=== PATIENT | male | born 1980 | race African-American/Black ===

== ENCOUNTER 2016-11-23 23:07 | Emergency (ER) | payer OTHER ==
[2016-11-23 23:15] VITALS: BP 133/93
[2016-11-23] MEDS ORDERED: Al Hydrox/Mg Hydrox/Simet LIQ* 30 ML UDC PO ONE (23:25)
[2016-11-23] MEDS ORDERED: Lidocaine 2% VISCOUS* 15 ML UDC PO ONE (23:25)
--- NOTE | 2016-11-24 01:41 | ED ---
Aurelio Ortiz Billy, scribed for Trevor Orozco MD on 11/24/16 at 0009 . GI/ HPI - HPI Summary HPI Summary: Patient is a 36 year-old inmate coming to [facility] after swallowing 2 plastic forks earlier tonight at 2030. At this time in the ED, he reports epigastric pain. Pain severity 6/10. Nothing makes his symptoms better or worst. He states that this was due to "behavioral outburst" and not self-harm. This was due to a stressful argument with a fellow inmate. He was seen at [facility] in June 2016 for a similar episode. - History of Current Complaint Chief Complaint: EDForeignBodyEsophag Time Seen by Provider: 11/23/16 23:18 Stated Complaint: SWALLOWED FOREIGN OBJECT Hx Obtained From: Patient Onset/Duration: Started Hours Ago, Still Present Timing: Constant Severity: Moderate Current Severity: Moderate Pain Intensity: 6 Location of Pain: Epigastric Associated Signs and Symptoms: Positive: Negative Foreign Body: Gastric Aggravating Factor(s): Nothing Alleviating Factor(s): Nothing - Allergy/Home Medications Allergies/Adverse Reactions: Allergies Allergy/AdvReac Type Severity Reaction Status Date / Time Haloperidol [From Haldol] Allergy Unknown Verified 06/21/16 17:08 Reaction Details PMH/Surg Hx/FS Hx/Imm Hx Endocrine/Hematology History: Denies: Hx Diabetes Psychiatric History: Reports: Hx Schizophrenia, Hx Bipolar Disorder Infectious Disease History: No Infectious Disease History: Denies: Traveled Outside the [place] in Last 30 Days - Family History Known Family History: Positive: Hypertension - Social History Alcohol Use: None Hx Substance Use: No Substance Use Type: Reports: None Smoking Status (MU): Unknown if Ever Smoked Review of Systems Negative: Fever Positive: Abdominal Pain All Other Systems Reviewed And Are Negative: Yes Physical Exam Triage Information Reviewed: Yes Vital Signs On Initial Exam: Initial Vitals Temp Pulse Resp BP Pulse Ox 98.8 F 85 17 133/93 96 11/23/16 23:11 11/23/16 23:11 11/23/16 23:11 11/23/16 23:11 11/23/16 23:11 Vital Signs Reviewed: Yes Appearance: Positive: No Pain Distress, Thin Head/Face: Positive: Normal Head/Face Inspection ENT: Positive: Hearing grossly normal Respiratory/Lung Sounds: Positive: Breath Sounds Present Cardiovascular: Positive: RRR Abdomen Description: Positive: Nontender, Soft Neurological: Positive: Sensory/Motor Intact, Alert, Oriented to Person Place, Time, Normal Gait Psychiatric: Positive: Affect/Mood Appropriate Diagnostics - Vital Signs Vital Signs Temp Pulse Resp BP Pulse Ox 11/23/16 23:11 98.8 F 85 17 133/93 96 - Laboratory Lab Statement: Any lab studies that have been ordered have been reviewed, and results considered in the medical decision making process. - CT abd/pel w/o CT Interpretation Completed By: Radiologist - Positive for a 3.9 cm x 6.8 mm foreign body is seen in the gastric antrum. A similar foreign body is seen in the second to third portion of the duodenum. Please note that oral contrast was administered and this may mask and obscure other ingested foreign bodies. No bowel obstruction, free air, or free fluid. Normal liver. Normal gallbladder. Normal spleen. Normal pancreas. Normal adrenal glands. Re-Evaluation - Re-Evaluation First Eval Comment: results d/w pt, advised to strain stools to make sure passage, follow up as needed GIGU Course/Dx - Diagnoses Provider Diagnoses: Foreign body ingestion - Physician Notifications Discussed Care Of Patient With: Dr. Galarza (radiology) @ 0137: CT abd/pel findings reviewed. Discharge - Discharge Plan Condition: Stable Disposition: LAW ENFORCEMENT/COURT Patient Education Materials: Foreign Body Ingestion (ED) Referrals: Yahir MULLINS,Velma Renee [Primary Care Provider] - Additional Instructions: STRAIN YOUR STOOLS. The documentation as recorded by the Aurelio escalante Billy accurately reflects the service I personally performed and the decisions made by , Trevor Orozco MD.
--- NOTE | 2016-11-24 07:58 | RAD ---
CLINICAL HISTORY: Foreign body ingestion COMPARISON: June 21, 2016 TECHNIQUE: Multiple contiguous axial CT scans were obtained of the abdomen and pelvis, without intravenous contrast enhancement. Coronal and sagittal multiplanar reformations are submitted for review. Oral contrast was administered. FINDINGS: The study is limited by the lack of intravenous contrast. This limits evaluation of the solid organs and vasculature. Additionally, the presence of oral contrast may obscure the presence of small foreign bodies within the lumen of the tract. LUNG BASES: The lung bases are clear. LIVER: The liver is normal in shape, size, contour, and attenuation. BILE DUCTS: There is no intrahepatic or extrahepatic biliary dilatation. GALLBLADDER: The gallbladder is normal, without pericholecystic inflammatory change. PANCREAS: The pancreas is normal, without mass or ductal dilatation. SPLEEN: Normal in size and appearance. UPPER GI TRACT: Evaluation of the gastrointestinal tract is limited by incomplete gastric distention. There is approximately 3.4 cm foreign body noted within the lumen of the stomach towards the gastric antrum. There is a similar linear foreign body within the duodenum at the junction of the second and third stages. SMALL BOWEL AND MESENTERY: The small bowel is normal in contour, course, and caliber. There is no obstruction or dilatation. COLON: The colon is normal in contour, course, caliber. There is no pericolonic inflammatory change. ADRENALS: Normal bilaterally. KIDNEYS: The kidneys are normal in shape, size, contour, and axis. There is no hydronephrosis or nephrolithiasis. BLADDER: The bladder is smooth in contour. PELVIC ORGANS: The prostate gland is normal. The seminal vesicles are symmetric. AORTA: The aorta is normal. IVC: Unremarkable LYMPH NODES: There is no lymphadenopathy by size criteria. ABDOMINAL WALL: There is no evidence for abdominal wall hernia. BONES AND SOFT TISSUES: The bones and soft tissues are unremarkable. OTHER: None IMPRESSION: FOREIGN BODY IS NOTED WITHIN THE STOMACH AND THE DUODENUM, WITHOUT FREE INTRAPERITONEAL GAS OR OBSTRUCTION
== END 2016-11-24 03:37 ==
LOC: ED 23:07
DX: R10.13 Epigastric pain (principal); T18.2XXA Foreign body in stomach, initial encounter; X58.XXXA Exposure to other specified factors, initial encounter; Y93.9 Activity, unspecified; Y92.149 Unspecified place in prison as the place of occurrence of the external cause; Y99.9 Unspecified external cause status
CPT/HCPCS: 74176; 99282; A9270-GY

== ENCOUNTER 2024-07-12 18:02 | Inpatient (IN) ==
[2024-07-12] MEDS ORDERED: Succinylcholine 200 mg VIAL 20 mg/ml 10 ml VIAL (200 mg) ONE (18:09)
[2024-07-12] MEDS ORDERED: Rocuronium 50 mg VIAL 10 mg/ml 5 ml VIAL (50 mg) ONE ×2 (18:09→19:49)
[2024-07-12] MEDS ORDERED: Propofol 10 mg/ml 100 ML BTL 1,000 MG/100 ML BTL ONE (18:34)
[2024-07-12 19:00] LABS: INR 1.09 (0.85-1.14)
[2024-07-12] MEDS: Propofol 10 mg/ml 100 ML BTL 1,000 MG/100 ML BTL IV SCH (19:09)
[2024-07-12 19:13] LABS: ABS Basophils 0.1 10^3/uL (0.0-0.1); ABS Eosinophils 0.2 10^3/uL (0.0-0.5); ABS Lymphocytes 1.5 10^3/uL (1.0-4.8); ABS Monocytes 0.3 10^3/uL (0.0-1.1); ABS Neutrophils 10.7 10^3/uL (1.5-7.6); ABS Nucleated RBC 0.01 10^3/ul; Eosinophil % 1.4 %; Hematocrit 42.7 % (38-53); Hemoglobin 14.5 g/dL (13.2-16.3); Lymphocyte % 11.9 %; Mean Corpuscular Hemoglobin 30.2 pg (27-33); Mean Corpuscular Hgb Conc 33.8 g/dL (31-36); Mean Corpuscular Volume 89.1 fL (80-97); Mean Platelet Volume 9.7 fL (7.5-11.2); Nucleated Red Blood Cells % 0.1 %/100WBC (0.0-0.8); Platelet Count 273 10^3/uL (150-450); Red Blood Count 4.79 10^6/uL (4.06-5.63); Red Cell Distribution Width 14.3 % (12-17); White Blood Count 12.7 10^3/uL (3.6-10.2)
[2024-07-12 19:14] LABS: ALT 20 U/L (7-52); Acetaminophen < 15 mcg/mL; Albumin 4.6 g/dL (3.2-5.2); Albumin/Globulin Ratio 1.3 (1-3); Alcohol, S < 13 mg/dL (<13); Alkaline Phosphatase 103 U/L (35-149); Anion Gap 18 mmol/L (2-16); Blood Urea Nitrogen 13 mg/dL (6-24); CO2 Carbon Dioxide 20 mmol/L (22-32); Chloride 102 mmol/L (101-111); Creatine Kinase 974 U/L (10-223); Globulin 3.6 g/dL (2-4); Glucose 124 mg/dL (70-100); Magnesium 2.1 mg/dL (1.9-2.7); Salicylate < 2.50 mg/dL (<30); Sodium 140 mmol/L (135-145); Total Protein 8.2 g/dL (6.4-8.9); eGFR CKD-EPI 106.7 (>60)
[2024-07-12 19:16] LABS: High Sens Troponin Baseline 20 pg/mL (<20)
[2024-07-12] MEDS ORDERED: fentaNYL 100 mcg/2 ml 50 MCG/ML VIAL ONE (19:16)
[2024-07-12] MEDS: fentaNYL 100 mcg/2 ml 50 MCG/ML VIAL IV SLOW PU ONE (19:19)
[2024-07-12 19:25] LABS: TSH Ultra Thyroid Stim Horm 1.19 mcIU/mL (0.34-5.60)
[2024-07-12] MEDS ORDERED: LORazepam 2 mg VIAL 1 ml ONE (19:25)
[2024-07-12] MEDS: LORazepam 2 mg VIAL 1 ml IV PUSH ONE (19:26)
[2024-07-12] MEDS ORDERED: Ketamine HCL 50 mg/ml 10 ml VIAL (500 MG) ONE (19:47)
[2024-07-12 20:07] LABS: Urine Appearance Clear; Urine Bilirubin Negative (Negative); Urine Blood 3+ (Negative); Urine Color Light-Yellow; Urine Glucose Negative (Negative); Urine Ketones Trace (Negative); Urine Nitrite Negative (Negative); Urine Protein 1+ (>=30 mg/dL) (Negative); Urine Specific Gravity 1.014 (1.002-1.030); Urine Urobilinogen Negative (Negative); Urine pH 5.5 (5.0-8.0)
[2024-07-12 20:10] LABS: Urine Bacteria 1+ /HPF (Absent); Urine Red Blood Cell Trace(0-2/hpf) /HPF (0-Trace); Urine White Blood Cell Trace(0-5/hpf) /HPF (0-Trace)
[2024-07-12 20:13] LABS: Urine Benzodiazepine Screen None Detected (None Detect); Urine Buprenorphine Screen Presumptive Positive (None Detect); Urine Cannabinoids Screen None Detected (None Detect); Urine Fentanyl Screen None Detected (None Detect); Urine Hydrocodone Screen None Detected (None Detect); Urine Opiates Screen None Detected (None Detect)
[2024-07-12] MEDS: Rocuronium 50 mg VIAL 10 mg/ml 5 ml VIAL (50 mg) IV ONE (20:15)
[2024-07-12] MEDS: Ketamine HCL 50 mg/ml 10 ml VIAL (500 MG) IV ONE (20:15)
[2024-07-12 20:41] LABS: Potassium Redraw 3.4 mmol/L (3.5-5.0)
[2024-07-12] MEDS: levETIRAcetam 500 MG IVPREMIX 500 MG/100 ML BAG IVPB ONE (21:23)
[2024-07-12 21:31] LABS: Valproic Acid < 10.0 mcg/mL (50-100)
[2024-07-12] MEDS: LEVETIRACETAM IVPB ONE (21:52)
[2024-07-12] MEDS: NS 0.9% IVPB ONE (21:52)
[2024-07-12] MEDS: Lactated Ringers 1000 ml BAG 1,000 ML IV ONE (21:58)
[2024-07-12] MEDS ORDERED: Lorazepam PYXIS KEY PRN (23:02)
[2024-07-13] LABS: Venous Bicarbonate HCO3 27.8 mmol/L (24-28)
[2024-07-13] MEDS: Propofol 10 mg/ml 100 ML BTL 1,000 MG/100 ML BTL IV SCH ×2 (00:03→06:45)
[2024-07-13] MEDS: Chlorhexidine MOUTHWASH 0.12% 15 ML UDC TOPICAL SCH (00:03)
[2024-07-13 00:16] LABS: High Sensitivity Troponin 3 Hr 125 pg/mL (<20)
[2024-07-13] MEDS: KCL 20 MEQ/100 ML IVPREMIX 20 MEQ/100 ML BAG IV SCH ×2 (00:38→19:02)
[2024-07-13] MEDS: Famotidine IV 10 MG/ML 2 ml VIAL (20 mg) IV SLOW PU SCH (00:41)
[2024-07-13] MEDS: Lactated Ringers 1000 ml BAG 1,000 ML IV ONE (00:41)
[2024-07-13] MEDS ORDERED: hydrALAZINE 20 mg/ml 1 ML Vial IV IV SLOW PU PRN ×2 (00:53→00:57)
[2024-07-13] MEDS ORDERED: Enoxaparin 100 MG/ML SYR SUBCUT SCH (01:00)
[2024-07-13] MEDS: LORazepam 2 mg VIAL 1 ml IV PUSH ONE (01:02)
[2024-07-13] MEDS: Magnesium Sulf 4 GM/100 ML IV 4,000 MG/100 ML BAG IVPB ONE (01:21)
[2024-07-13] MEDS: fentaNYL 100 mcg/2 ml 50 MCG/ML VIAL IV SLOW PU PRN (01:35)
[2024-07-13] MEDS: LORazepam 2 mg VIAL 1 ml ONE (02:14)
[2024-07-13] MEDS: fentaNYL 100 mcg/2 ml 50 MCG/ML VIAL ONE (02:14)
[2024-07-13] MEDS: Enoxaparin 40 MG/0.4 ML SYR SUBCUT SCH ×2 (02:14→17:42)
[2024-07-13] MEDS: niCARdipine 0.1MG/ML IVPREMIX 20 MG/200 ML BAG IV SCH ×2 (02:16→03:55)
[2024-07-13] MEDS ORDERED: Lorazepam PYXIS KEY PRN (03:11)
[2024-07-13] MEDS: diazePAM INJ CARPUJECT 5 MG/ML SYRINGE IV PRN (05:20)
[2024-07-13 06:00] LABS: ABS Basophils 0.1 10^3/uL (0.0-0.1); ABS Eosinophils 0.1 10^3/uL (0.0-0.5); ABS Lymphocytes 1.7 10^3/uL (1.0-4.8); ABS Monocytes 0.4 10^3/uL (0.0-1.1); ABS Neutrophils 5.6 10^3/uL (1.5-7.6); ABS Nucleated RBC 0.01 10^3/ul; Eosinophil % 0.8 %; Hematocrit 39.5 % (38-53); Hemoglobin 13.3 g/dL (13.2-16.3); Lymphocyte % 21.6 %; Mean Corpuscular Hemoglobin 30.1 pg (27-33); Mean Corpuscular Hgb Conc 33.6 g/dL (31-36); Mean Corpuscular Volume 89.5 fL (80-97); Mean Platelet Volume 8.3 fL (7.5-11.2); Nucleated Red Blood Cells % 0.1 %/100WBC (0.0-0.8); Platelet Count 194 10^3/uL (150-450); Red Blood Count 4.42 10^6/uL (4.06-5.63); Red Cell Distribution Width 14.6 % (12-17); White Blood Count 7.8 10^3/uL (3.6-10.2)
[2024-07-13 06:33] LABS: Calcium 8.9 mg/dL (8.6-10.3); Creatinine, Serum 0.71 mg/dL (0.67-1.17); Potassium 3.6 mmol/L (3.5-5.0); eGFR CKD-EPI 114.6 (>60)
[2024-07-13 06:56] LABS: Magnesium 3.5 mg/dL (1.9-2.7)
[2024-07-13] MEDS: levETIRAcetam IV 1,250 MG in NS 0.9% 100 ml BAG 100 ML IVPB SCH (07:35)
[2024-07-13] MEDS: Midazolam PREMIXBAG 1 MG/ML NS 100 ML IV SCH (07:58)
[2024-07-13] MEDS: NORMOSOL-R pH 7.4 1000 mL BAG 1,000 ML IV SCH ×2 (08:09→17:43)
[2024-07-13 10:00] LABS: High Sensitivity Troponin 3 Hr 261 pg/mL (<20)
[2024-07-13 10:45] LABS: ABS Basophils 0.1 10^3/uL (0.0-0.1); ABS Eosinophils 0.1 10^3/uL (0.0-0.5); ABS Lymphocytes 1.8 10^3/uL (1.0-4.8); ABS Monocytes 0.6 10^3/uL (0.0-1.1); ABS Neutrophils 5.7 10^3/uL (1.5-7.6); ABS Nucleated RBC 0.01 10^3/ul; Eosinophil % 1.4 %; Hemoglobin 12.8 g/dL (13.2-16.3); Lymphocyte % 21.8 %; Mean Corpuscular Hemoglobin 29.5 pg (27-33); Mean Corpuscular Hgb Conc 32.8 g/dL (31-36); Mean Platelet Volume 7.9 fL (7.5-11.2); Nucleated Red Blood Cells % 0.1 %/100WBC (0.0-0.8); Platelet Count 171 10^3/uL (150-450); Red Blood Count 4.33 10^6/uL (4.06-5.63); Red Cell Distribution Width 14.5 % (12-17); White Blood Count 8.2 10^3/uL (3.6-10.2)
[2024-07-13] MEDS: Heparin DRIP 25,000 UNITS BAG 25,000 UNITS/250 ML BAG IV SCH (10:58)
[2024-07-13] MEDS: Heparin 5000 UNITS/ML 1 mL VIAL IV SCH (11:02)
[2024-07-13 11:21] LABS: Creatine Kinase 45638 U/L (10-223)
[2024-07-13 11:33] LABS: Calcium 8.8 mg/dL (8.6-10.3); Creatinine, Serum 0.79 mg/dL (0.67-1.17); Potassium 3.8 mmol/L (3.5-5.0)
[2024-07-13] MEDS: Midazolam 5 mg/5 ml VIAL 1 mg/ml 5 ml VIAL (5 mg) IV SLOW PU ONE ×2 (14:22→15:27)
[2024-07-13] MEDS: Midazolam 5 mg/5 ml VIAL 1 mg/ml 5 ml VIAL (5 mg) ONE ×2 (16:11)
[2024-07-13] MEDS: Midazolam 10 mg/10 ml VIAL 1 mg/ml 10 ml VIAL (10 mg) IV SLOW PU ONE ×2 (16:12)
[2024-07-13 16:40] LABS: Calcium 8.7 mg/dL (8.6-10.3); Creatinine, Serum 0.79 mg/dL (0.67-1.17); Potassium 3.3 mmol/L (3.5-5.0)
[2024-07-13 17:29] LABS: High Sensitivity Troponin 1 Hr 171 pg/mL (<20)
[2024-07-13 18:51] LABS: Phosphorus 2.7 mg/dL (2.5-5.0)
[2024-07-13 23:31] LABS: Calcium 8.4 mg/dL (8.6-10.3); Creatinine, Serum 0.82 mg/dL (0.67-1.17); Potassium 3.8 mmol/L (3.5-5.0); eGFR CKD-EPI 109.7 (>60)
[2024-07-14 04:45] LABS: ABS Eosinophils 0.1 10^3/uL (0.0-0.5); ABS Lymphocytes 1.6 10^3/uL (1.0-4.8); ABS Monocytes 0.4 10^3/uL (0.0-1.1); ABS Neutrophils 3.1 10^3/uL (1.5-7.6); ABS Nucleated RBC 0.01 10^3/ul; Eosinophil % 2.8 %; Hematocrit 36.9 % (38-53); Hemoglobin 11.9 g/dL (13.2-16.3); Lymphocyte % 30.4 %; Mean Corpuscular Hgb Conc 32.3 g/dL (31-36); Mean Corpuscular Volume 89.8 fL (80-97); Mean Platelet Volume 8.7 fL (7.5-11.2); Nucleated Red Blood Cells % 0.2 %/100WBC (0.0-0.8); Platelet Count 175 10^3/uL (150-450); Red Blood Count 4.11 10^6/uL (4.06-5.63); Red Cell Distribution Width 14.7 % (12-17); White Blood Count 5.2 10^3/uL (3.6-10.2)
[2024-07-14 05:20] LABS: Calcium 8.3 mg/dL (8.6-10.3); Creatinine, Serum 0.79 mg/dL (0.67-1.17); Potassium 3.5 mmol/L (3.5-5.0)
[2024-07-14] MEDS: Sulfur Hexaflouride MICROSPHR 25 MG VIAL IV PRN (08:48)
[2024-07-14] MEDS: Furosemide 40 mg/4 ml IV VIAL IV SLOW PU ONE (10:30)
[2024-07-14] MEDS: Iohexol 350 (CONTRAST) 500 ML MDV IV ONE (16:26)
[2024-07-14] MEDS: Ondansetron 4 mg VIAL 2 MG/ML 2 ml VIAL IV PRN (16:38)
[2024-07-14] MEDS: Morphine ER 15 mg TAB ** extended release PO SCH (19:52)
[2024-07-15 05:02] LABS: ABS Basophils 0.1 10^3/uL (0.0-0.1); ABS Eosinophils 0.2 10^3/uL (0.0-0.5); ABS Monocytes 0.5 10^3/uL (0.0-1.1); ABS Neutrophils 4.6 10^3/uL (1.5-7.6); ABS Nucleated RBC 0.01 10^3/ul; Eosinophil % 2.5 %; Lymphocyte % 26.7 %; Mean Corpuscular Hemoglobin 29.6 pg (27-33); Mean Corpuscular Hgb Conc 33.3 g/dL (31-36); Mean Corpuscular Volume 88.9 fL (80-97); Mean Platelet Volume 8.4 fL (7.5-11.2); Nucleated Red Blood Cells % 0.2 %/100WBC (0.0-0.8); Platelet Count 193 10^3/uL (150-450); Red Blood Count 4.39 10^6/uL (4.06-5.63); Red Cell Distribution Width 14.4 % (12-17); White Blood Count 7.4 10^3/uL (3.6-10.2)
[2024-07-15 05:27] LABS: Calcium 9.2 mg/dL (8.6-10.3); Creatinine, Serum 0.78 mg/dL (0.67-1.17); Potassium 3.7 mmol/L (3.5-5.0); eGFR CKD-EPI 111.4 (>60)
[2024-07-15 06:08] LABS: Magnesium 1.9 mg/dL (1.9-2.7)
[2024-07-15] MEDS: Iodixanol 320 (CONTRAST) 100 ML SDV IV ONE (08:37)
[2024-07-15] MEDS: Senna TAB 8.6 mg TAB PO ONE (11:03)
[2024-07-15] MEDS: Polyethylene Glycol 3350 17 GM PACKET PO SCH (11:03)
[2024-07-15] MEDS: Methadone ORALSYR CONC LIQ 10 MG/ML PO SCH (11:04)
[2024-07-15] MEDS: levETIRAcetam 500 MG IVPREMIX 500 MG/100 ML BAG IV SCH (21:15)
[2024-07-16] MEDS: Lactated Ringers 1000 ml BAG 1,000 ML IV SCH (11:54)
[2024-07-17 08:15] LABS: ABS Basophils 0.1 10^3/uL (0.0-0.1); ABS Eosinophils 0.2 10^3/uL (0.0-0.5); ABS Lymphocytes 1.3 10^3/uL (1.0-4.8); ABS Monocytes 0.5 10^3/uL (0.0-1.1); ABS Neutrophils 3.3 10^3/uL (1.5-7.6); Eosinophil % 3.9 %; Hemoglobin 14.7 g/dL (13.2-16.3); Lymphocyte % 24.1 %; Mean Corpuscular Hemoglobin 29.6 pg (27-33); Mean Corpuscular Hgb Conc 33.4 g/dL (31-36); Mean Corpuscular Volume 88.7 fL (80-97); Mean Platelet Volume 8.7 fL (7.5-11.2); Nucleated Red Blood Cells % 0.1 %/100WBC (0.0-0.8); Platelet Count 222 10^3/uL (150-450); Red Blood Count 4.96 10^6/uL (4.06-5.63); Red Cell Distribution Width 14.3 % (12-17); White Blood Count 5.3 10^3/uL (3.6-10.2)
[2024-07-17 08:59] LABS: Creatinine, Serum 0.83 mg/dL (0.67-1.17); eGFR CKD-EPI 109.3 (>60)
[2024-07-17 09:15] LABS: Albumin 4.1 g/dL (3.2-5.2); Albumin/Globulin Ratio 1.1 (1-3); Globulin 3.8 g/dL (2-4); Total Bilirubin 0.7 mg/dL (0.2-1.0); Total Protein 7.9 g/dL (6.4-8.9)
[2024-07-18 08:05] LABS: ABS Basophils 0.1 10^3/uL (0.0-0.1); ABS Eosinophils 0.2 10^3/uL (0.0-0.5); ABS Lymphocytes 1.3 10^3/uL (1.0-4.8); ABS Monocytes 0.5 10^3/uL (0.0-1.1); ABS Neutrophils 3.4 10^3/uL (1.5-7.6); Eosinophil % 3.3 %; Hematocrit 44.7 % (38-53); Lymphocyte % 24.5 %; Mean Corpuscular Hemoglobin 29.9 pg (27-33); Mean Corpuscular Hgb Conc 33.5 g/dL (31-36); Mean Corpuscular Volume 89.2 fL (80-97); Mean Platelet Volume 8.3 fL (7.5-11.2); Nucleated Red Blood Cells % 0.1 %/100WBC (0.0-0.8); Platelet Count 232 10^3/uL (150-450); Red Blood Count 5.01 10^6/uL (4.06-5.63); Red Cell Distribution Width 14.1 % (12-17); White Blood Count 5.4 10^3/uL (3.6-10.2)
[2024-07-18 08:39] LABS: Calcium 10.7 mg/dL (8.6-10.3); Creatinine, Serum 0.76 mg/dL (0.67-1.17); Magnesium 1.8 mg/dL (1.9-2.7); Potassium 4.1 mmol/L (3.5-5.0); eGFR CKD-EPI 112.3 (>60)
[2024-07-18 15:14] VITALS: BP 153/100
== END 2024-07-18 15:40 | disposition home or self-care (01) | DRG 812 ==
LOC: ED 18:02 → EDHOLD 21:04 → SUATTDRO 21:04 → ICU 22:30 → MEDTELE 07-15 09:51
PROVIDERS: ADMIT Student in an Organized Health Care Education/Training Program; ATTEND Internal Medicine